=== PATIENT | female | born 1965 | race Caucasian/White ===

== ENCOUNTER 2018-07-20 23:56 | Emergency (ER) | payer OTHER ==
[2018-07-21] MEDS: HYDROCODONE/APAP (5/325) TAB PO (00:22)
== END 2018-07-21 02:26 | disposition home or self-care (01) ==
LOC: FTE 23:56
DX: S92.341A Displaced fracture of fourth metatarsal bone, right foot, initial encounter for closed fracture (principal); S92.351A Displaced fracture of fifth metatarsal bone, right foot, initial encounter for closed fracture; F17.210 Nicotine dependence, cigarettes, uncomplicated; X58.XXXA Exposure to other specified factors, initial encounter; Y92.9 Unspecified place or not applicable
CPT/HCPCS: 29505; 73630; 99283-25